=== PATIENT | female | born 1965 | race Caucasian/White ===

== ENCOUNTER 2017-07-03 17:25 | Emergency (ER) | payer OTHER ==
[~2017-07-03] VITALS: Ht 167.6 cm; Wt 118.5 kg
[~2017-07-03 17:25] MED LIST: FIORIC PO; IMIT50TA PO; MELO7.5 PO; NEXI40CA PO; OXYC30TA PO; PRED20 PO; SPIRCAP INH; TIZA4 PO; ZITH250T PO
[2017-07-03 17:35] VITALS: BP 174/86; PULSE 70; RESP 16; TEMP 97; O2SAT 100
[2017-07-03] MEDS ORDERED: SODIUM CHLOR 0.9% 1000 ML INJ 1,000 ML IV SCH (17:42)
[2017-07-03] MEDS ORDERED: METOCLOPRAMIDE HCL 10 MG/2 ML VIAL IV PUSH ONE (17:45)
[2017-07-03] MEDS ORDERED: SODIUM CHLORIDE 0.9% FLUSH 10 ML FLUSH IV FLUSH PRN (17:45)
[2017-07-03] MEDS ORDERED: KETOROLAC TROMETHAMINE 30 MG/ML (IVP) VIAL IV PUSH ONE (17:45)
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
[2017-07-03] MEDS ORDERED: HYDR-3534 PO (17:49)
[2017-07-03] MEDS ORDERED: BUTA1CAP PO (17:49)
[2017-07-03] MEDS ORDERED: MOBI7.5T PO (17:49)
[2017-07-03] MEDS ORDERED: DULO20 PO (17:49)
[2017-07-03] MEDS ORDERED: CLIN1CAP6 PO (17:49)
[2017-07-03 18:08] LABS: AUTOMATED NEUTROPHIL # 3.2 TH/MM3 (1.8-7.7); BASOPHIL % 0.5 % (0.0-2.0); EOSINOPHIL # 0.1 TH/MM3 (0-0.4); EOSINOPHIL % 1.7 % (0.0-4.0); HEMATOCRIT 35.4 % (35.0-46.0); HEMO FLAGS DIFF FINAL; LYMPH % 22.8 % (9.0-44.0); MEAN CELL VOLUME 79.2 FL (80.0-100.0); MEAN CORPUSCULAR HEMOGLOBIN 26.6 PG (27.0-34.0); MEAN CORPUSCULAR HGB CONC 33.6 % (32.0-36.0); MONO % 5.6 % (0.0-8.0); NEUT % 69.4 % (16.0-70.0); PLATELET COUNT 151 TH/MM3 (150-450); RED BLOOD COUNT 4.47 MIL/MM3 (4.00-5.30); RED CELL DISTRIBUTION WIDTH 12.9 % (11.6-17.2); WHITE BLOOD COUNT 4.6 TH/MM3 (4.0-11.0)
[2017-07-03 18:16] LABS: POTASSIUM 3.9 MEQ/L (3.5-5.1)
[2017-07-03 18:19] LABS: BICARBONATE 25.8 MEQ/L (21.0-32.0)
[2017-07-03] MEDS ORDERED: ZOFR4TAB3 SL (18:37)
[2017-07-03 18:45] VITALS: O2SAT 99
== END 2017-07-03 18:46 | disposition home or self-care (01) ==
LOC: PHED 17:25
DX: G43.909 Migraine, unspecified, not intractable, without status migrainosus (principal); Z88.0 Allergy status to penicillin; M79.7 Fibromyalgia; M32.9 Systemic lupus erythematosus, unspecified; J45.909 Unspecified asthma, uncomplicated; K21.9 Gastro-esophageal reflux disease without esophagitis
CPT/HCPCS: 80048; 85025; 96374; 96375; 99284; J1885; J2765; J7030